=== PATIENT | male | born 1995 | race Caucasian/White ===

== ENCOUNTER 2021-02-18 19:55 | Emergency (ER) | payer OTHER ==
[2021-02-18] MEDS ORDERED: DELSYM30 MG/5 ML PO (21:49)
== END 2021-02-18 21:53 | disposition home or self-care (01) ==
LOC: ER1 19:55
DX: U07.1 COVID-19 (principal); Z88.1 Allergy status to other antibiotic agents; F17.210 Nicotine dependence, cigarettes, uncomplicated
CPT/HCPCS: 99283; U0002